=== PATIENT | male | born 1930 | race Caucasian/White ===

== ENCOUNTER → 2018-05-04 | Day surgery (SDC) | payer MEDICARE, OTHER ==
[2018-05-03 14:37] LABS: BASOPHILS % 0.3 % (0.0-1.0); EOSINOPHILS # (AUTO) 0.1 (0.0-0.4); EOSINOPHILS % 0.9 % (0.0-6.0); HEMATOCRIT 33.8 % (38.2-49.6); HEMOGLOBIN 11.1 g/dL (14.0-18.0); LYMPHOCYTES # (AUTO) 1.4 (1.0-3.2); LYMPHOCYTES % 23.4 % (18.0-39.1); MEAN CORPUSCULAR HEMOGLOBIN 30.7 pg (28-32); MEAN CORPUSCULAR HGB CONC 32.8 g/dL (31-35); MEAN CORPUSCULAR VOLUME 93.6 fL (81-99); MONOCYTES # (AUTO) 0.4 (0.2-0.8); MONOCYTES % 7.3 % (4.4-11.3); NEUTROPHILS # (AUTO) 3.9 (2.1-6.9); NEUTROPHILS % 67.9 % (38.7-80.0); PLATELET COUNT 138 x10e3/uL (140-360); RED BLOOD COUNT 3.61 x10e6/uL (4.3-5.7)
[2018-05-03 14:52] LABS: ANION GAP 15.6 mmol/L (8-16); CREATININE, SERUM 1.86 mg/dL (0.72-1.25); POTASSIUM 4.6 mmol/L (3.5-5.1)
--- NOTE | 2018-05-03 15:13 | Diagnostic Imaging Report ---
EXAMINATION: CHEST 2 VIEWS INDICATION: BCCA left cheek \S\PRE-OP COMPARISON: None FINDINGS: PA and lateral views TUBES and LINES: Aortic valve prosthesis. Median sternotomy wires. LUNGS: Lungs are well inflated. Calcified granuloma in the left lateral lung base. Lungs are clear. There is no evidence of pneumonia or pulmonary edema. PLEURA: No pleural effusion or pneumothorax. HEART AND MEDIASTINUM: The cardiomediastinal silhouette is unremarkable. BONES AND SOFT TISSUES: No acute osseous lesion. Soft tissues are unremarkable. UPPER ABDOMEN: No free air under the diaphragm. IMPRESSION: No acute thoracic abnormality. Signed by: Dr. Amado Torres M.D. on 05/03/2018 3:10 PM
[~2018-05-04] MED LIST: ALBUTEROL/IPRATROPIUM 3 ML NEB ONE; ASPIR 8181 MG PO; ATORVASTATIN CA20 MG PO; BENICAR HCT 201 EACH PO; CEFAZOLIN SOD 1 GM VIAL ONE; EPHEDRINE SULFATE INJ 50 MG/10 ML SYR ONE; FENTANYL CITRATE/PF 100MCG/2 ML INJ ONE; GLYCOPYRROLATE 0.2 MG/ML VIAL ONE; GLYCOPYRROLATE INJ 1MG/ 5 ML SYR ONE; HYDROCORTISONE SOD SUCCINATE 100 MG VIAL ONE; JANUVIA100 MG PO; LIDOCAINE 1% W/EPINEPHRINE 20 ML VIAL ONE; MAGNESIUM OXID400 MG PO; MIDAZOLAM HCL 2 MG/2 ML VIAL ONE; MUPIROCIN 2% OINT 22 GM TUBE ONE; NEOSTIGMINE 1 MG/ML 10ML VIAL ONE; NEOSTIGMINE 5 MG/5ML SYR ONE; ONDANSETRON HCL INJ 2 MG/ML VIAL ONE; ONE DAILY FOR1 EAC1 PO; PIOGLITAZONE HC45 MG PO; PROPOFOL IV EMULSION 10 MG/ML 20 ML VIAL ONE; ROCURONIUM BROMIDE 10 MG/ML 5ML VIAL ONE; SEVOFLURANE INHAL SOLN 250 ML PEN BTL ONE; SUGAMMADEX SODIUM 200 MG/2 ML VIAL IV ONE
[2018-05-04 13:35] VITALS: BP 128/65
--- NOTE | 2018-05-04 15:11 | Operative Report ---
DATE OF PROCEDURE: May 04, 2018 PREOPERATIVE DIAGNOSIS: Basal cell carcinoma left cheek. POSTOPERATIVE DIAGNOSIS: Status post Mohs micrographic surgery and a full-thickness wound left cheek measuring approximately 50 cm squared. PROCEDURE PERFORMED: 1. Cervicofacial advancement flap 150 cm squared. 2. Full-thickness skin grafting left cheek 25 cm squared. ANESTHESIA: General. HISTORY: The patient is an 87-year-old male who several days ago underwent Mohs micrographic removal of a very extensive left cheek basal cell carcinoma. This resulted in a full-thickness defect measuring approximately 7 cm in its greatest diameter, resulting in a 50 cm squared defect. The risks, benefits and alternatives of treatment were discussed with the patient, and he is prepared to undergo the procedures outlined. DETAILS OF PROCEDURE: Patient was marked preoperatively in the holding area. He was brought to the operating theater, and after the induction of adequate general anesthesia he was prepped and draped in a supine position. A time out was performed. The procedure was begun by marking out the cervicofacial flap, and then the soft tissues were infiltrated with 1% Xylocaine with epinephrine. Approximately 20 mL was used. After waiting an appropriate amount of time for maximum vasoconstrictive effect, the incisions were made through the skin and subcutaneous tissues. Bleeding was controlled using the electrocautery. The flap was elevated from the cheek towards the left side of the neck in the subcutaneous plane. Care was taken to ensure that maximum vasculature could be maintained. At the level of the neck, the flap dissection was terminated and then the flap was advanced as far as it would go without putting too much tension on the tissues. Once it was temporarily tacked into place, it was noted that the remaining defect was approximately 25 cm squared medially. At this point, the flap was inspected once again, the wound irrigated, and the lateral borders of the flap were incised using 4-0 Vicryl suture in an interrupted buried fashion followed by 5-0 nylon in interrupted horizontal mattress fashion. At this point, a template was made of the defect that remained. This was transferred to the left anterior chest wall. The soft tissues were then infiltrated with 1% Xylocaine with epinephrine, and 10 mL was used. The full-thickness graft was then incised through the skin and subcutaneous tissues, and it was then de-fatted in the deep dermal plane. The graft was then placed onto the remaining cheek defect and secured using 5-0 chromic sutures in a circumferential fashion. Several incisions were made in the graft in order to allow the egress of blood and fluid. At this point, the donor site was closed by undermining it widely using the electrocautery, and given the layered closure with 3-0 Monocryl in an interrupted buried fashion followed by 4-0 Monocryl running subcuticular stitch, 1-inch Steri-Strips were then applied. Circumferential 4-0 silk sutures were placed around the full-thickness graft. Bactroban ointment was applied to the graft. Xeroform gauze and then moistened cotton balls were placed to maintain good apposition of the graft to the wound bed. The silk sutures were then tied in a bolster-type fashion over the Xeroform and the cotton balls, maintaining good apposition of the graft to the wound bed. The remainder of the incisions were then dressed with Bactroban ointment, Xeroform gauze and sterile dressings. The estimated blood loss of the procedure was approximately 30 to 40 mL. Patient tolerated the procedure well, brought to the recovery room in satisfactory condition and discharged with a postoperative instruction sheet as well as a followup appointment. Job#: [id number]
== END | disposition home or self-care (01) ==
LOC: OR 06:25
PROVIDERS: ATTEND Plastic Surgery
DX: C44.319 Basal cell carcinoma of skin of other parts of face (principal); Z95.2 Presence of prosthetic heart valve; Z01.810 Encounter for preprocedural cardiovascular examination; Z01.812 Encounter for preprocedural laboratory examination; Z01.811 Encounter for preprocedural respiratory examination; J44.9 Chronic obstructive pulmonary disease, unspecified; F41.9 Anxiety disorder, unspecified; N18.9 Chronic kidney disease, unspecified; E11.22 Type 2 diabetes mellitus with diabetic chronic kidney disease; I12.9 Hypertensive chronic kidney disease with stage 1 through stage 4 chronic kidney disease, or unspecified chronic kidney disease; Z79.4 Long term (current) use of insulin
CPT/HCPCS: 14041; 15240; 15241; 36415 ×2; 71046; 80048; 82948; 85025; 93005; J0690; J1720; J2250; J2405; J2710; J3490